=== PATIENT | male | born 1955 | race Caucasian/White ===

== ENCOUNTER 2018-04-28 12:32 | Observation (INO) | payer OTHER ==
--- OUTSIDE RECORDS SUMMARY | 2018-04-28 12:37 | XMS REPORT | Continuity of Care Document ---
:1955 External Reference #:[id number] Author Name Mireya Stevens Care Team Providers Name Role Phone Mauri Chowdhury MD Care Team Information Partnership Manager Unavailable Mauri Chowdhury MD Primary Care Physician Unavailable Payers Type Date Identification Numbers Payment Provider Subscriber Policy Number: [id number] Non [facility] Jenna Dukes PayID: [id number] [address] [address] [place] [address] Expires: 2017 Policy Number: [id number] Workers Compensation Jenna Dukes Onset: 2011 PayID: [id number] [employer] [address] [place] [address] Advance Directives Description No Information Available Problems Description No Information Family History Description No Information Available Social History Type Date Description Comments Sex Unknown Marital Status Single Occupation property maintenance Occupation Tobacco Use Start: Unknown Current Cigarette Smoker 1 Pack Daily ETOH Use Rarely consumes alcohol Recreational Drug Use Used Recreational Drugs In The Past Allergies, Adverse Reactions, Alerts Date Description Reaction Status Severity Comments 04/24/2011 Penicillin Active 02/09/2018 Bee Sting Active Medications Medication Date Status Form Strength Qnty SIG Indications Ordering Provider Cetirizine HCL Active Tablets 10mg 1 by mouth Unknown /0000 every day . Clobetasol 00/00 Active Ointment 0.05% use Unknown Propionate /0000 sparingly twice a day x 1 week Fluticasone 00 Active Suspension 50mcg/Act 2 sprays Unknown Propionate /0000 both nostrils every day Hydrochlorothiazi 00/00 Active Tablets 25mg 1 by mouth Unknown de /0000 every day Pravastatin 00/00 Active Tablets 40mg 1 by mouth Unknown Sodium /0000 every day Aspirin 00/[address] 81mg 1 by mouth Unknown /0000 every day No Active 04/24 Fanny Shepherd Mago Sy M.D. 02/09 Immunizations Description No Information Available Vital Signs Date Vital Result Comment 04/18/2018 1:57pm Weight 119.00 lb Height 65 inches 5'5" BMI (Body Mass Index) 19.8 kg/m2 BP Systolic 115 mmHg BP Diastolic 68 mmHg Heart Rate 86 /min O2 % BldC Oximetry 95 % Body Temperature 98.9 F Pain Level 0 02/09/2018 3:34pm Weight 119.00 lb Height 65 inches 5'5" BMI (Body Mass Index) 19.8 kg/m2 BP Systolic 146 mmHg BP Diastolic 78 mmHg Heart Rate 78 /min O2 % BldC Oximetry 94 % Body Temperature 98.5 F Pain Level 0 05/18/2011 4:02pm Weight 119.00 lb Height 65.5 inches 5'5.50" BMI (Body Mass Index) 19.5 kg/m2 BP Systolic 130 mmHg BP Diastolic 70 mmHg Heart Rate 88 /min O2 % BldC Oximetry 95 % Body Temperature 97.4 F 04/24/2011 4:32pm Weight 121.00 lb Height 65.5 inches 5'5.50" BMI (Body Mass Index) 19.8 kg/m2 BP Systolic 124 mmHg BP Diastolic 58 mmHg Heart Rate 70 /min O2 % BldC Oximetry 95 % Body Temperature 97.4 F Results Description No Information Available Procedures Date Code Description Status 02/09/2018 06278 Nasal Endoscopy, Diag. Completed 05/18/2011 75559 Laryngoscopy W/ Stroboscopy Completed 04/24/2011 61407 Laryngoscopy W/ Stroboscopy Completed 04/24/2011 54891 Laryngoscopy W/ Stroboscopy Completed Encounters Type Date Location Provider Dx Diagnosis Office Visit 02/09/2018 Main Office Yossi Shepherd M.D. J32.9 Chronic sinusitis, 3:30p unspecified J34.2 Deviated nasal septum J34.3 Hypertrophy of nasal turbinates Office Visit 05/18/2011 4:15p Main Office Yossi Shepherd 478.79 Larynx Disease Catalina Other 958.8 Trauma Early Complication Other 784.1 Throat Pain 784.49 Voice Disturbance Other Office Visit 04/24/2011 4:30p Main Office Yossi Shepherd M.D. 784.1 Throat Pain 784.1 Throat Pain 478.79 Larynx Disease Other 478.79 Larynx Disease Other 959.09 Injury Face And Neck 959.09 Injury Face And Neck 925.2 Crushing Injury Neck 925.2 Crushing Injury Neck 784.49 Voice Disturbance Other Plan of Treatment No Information Available
[2018-04-28] MEDS ORDERED: NS 0.9% 1000 ML* 1,000 ML IV ONE (12:45)
[2018-04-28] MEDS ORDERED: Aspirin 81 mg CHEW TAB* 81 MG TAB.CHEW PO ONE (12:46)
--- NOTE | 2018-04-28 12:59 | ED ---
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 Pt notes sx improved with EMS tx atropine, 500cc nl saline. The pt experienced dizziness, so he sat down but sx continued to worsen. He endorses LOC for unknown duration , diaphoresis, and SOB. PMHx OA chronic back pain, but pain a little worse/ different than usual. Rx 81 mg ASA. PMHx HTN rx hydrochlorothiazide. He notes the dizziness is worsens with sitting up. He denies FHx aneurysms, recent illness, fever, cough, and EtOH use. - History of Current Complaint Chief Complaint: EDSyncope Time Seen by Provider: 04/28/18 12:44 Hx Obtained From: Patient Onset/Duration: Started Hours Ago, Still Present Timing: Constant Initial Severity: Mild Current Severity: Mild Pain Intensity: 2 Pain Scale Used: 0-10 Numeric Chest Pain Location: Mid Sternal Chest Pain Radiates: Yes Chest Pain Radiates To:: Back Character: Tightness Aggravating Factor(s): Other: - sitting up Alleviating Factor(s): EMS Tx Associated Signs and Symptoms: Positive: Chest Pain, Dizziness, Shortness of Breath, Diaphoresis, Back Pain, Other: - syncope. Negative: Fever, Cough, Productive Cough, Nonproductive Cough - Allergy/Home Medications Allergies/Adverse Reactions: Allergies Allergy/AdvReac Type Severity Reaction Status Date / Time fentanyl Allergy Intermediate Difficulty Verified 04/28/18 16:04 Breathing MS Penicillins [Penicillins] Allergy Unknown Unknown Verified 12/17/13 12:45 Reaction Details Home Medications: Home Medications Aspirin EC TAB* [Ecotrin EC Low Dose 81 MG*] 81 mg PO DAILY 04/28/18 [History Confirmed 04/28/18] Budesonide/Formote 160/4.5(NF) [Symbicort 160/4.5 (NF)] 2 puff INH BID 04/28/18 [History Confirmed 04/28/18] Cetirizine* [ZyrTEC 10 MG TAB*] 10 mg PO DAILY PRN 04/28/18 [History Confirmed 04/28/18] Clobetasol 0.05% OINT* 1 applic TOPICAL QAM PRN 04/28/18 [History Confirmed 06/05] Clopidogrel TAB* [Plavix TAB*] 75 mg PO DAILY 04/28/18 [History Confirmed ] Fluticasone NASAL SPRAY 50MCG* [Flonase NASAL SPRAY 50MCG*] 2 spray BOTH NARES DAILY PRN 04/28/18 [History Confirmed 04/28/18] Hydrochlorothiazide TAB* [Hydrodiuril TAB*] 25 mg PO QAM 04/28/18 [History Confirmed 04/28/18] Pravastatin (NF) [Pravachol (NF)] 10 mg PO BEDTIME 04/28/18 [History Confirmed 04/28/18] PMH/Surg Hx/FS Hx/Imm Hx Cardiovascular History: Reports: Hx Hypertension Respiratory History: Reports: Hx Chronic Obstructive Pulmonary Disease (COPD) Sensory History: Denies: Hx Cataracts, Hx Contacts or Glasses, Hx Eye Prosthesis, Hx Glaucoma , Hx Macular Degeneration Opthamlomology History: Denies: Hx Cataracts, Hx Contacts or Glasses, Hx Eye Prosthesis, Hx Glaucoma , Hx Macular Degeneration - Surgical History Surgery Procedure, Year, and Place: hernia, tonsilectomy - Immunization History Immunizations Up to Date: Yes Infectious Disease History: No Infectious Disease History: Denies: Traveled Outside the [place] in Last 30 Days - Family History Known Family History: Positive: None - Social History Alcohol Use: Rare Substance Use Type: Reports: Marijuana Substance Use Comment - Amount & Last Used: Daily Smoking Status (MU): Heavy Every Day Tobacco Smoker Type: Cigarettes Amount Used/How Often: 1/2 ppd Length of Time of Smoking/Using Tobacco: 40 yrs Have You Smoked in the Last Year: Yes Review of Systems Positive: Skin Diaphoresis. Negative: Fever, Chills Negative: Erythema Negative: Sore Throat Positive: Chest Pain Positive: Shortness Of Breath. Negative: Cough Negative: Abdominal Pain, Vomiting, Nausea Negative: dysuria, hematuria Positive: Myalgia - back. Negative: Edema Negative: Rash Neurological: Other - dizziness Positive: Syncope - LOC, unknown duration All Other Systems Reviewed And Are Negative: Yes Physical Exam - Summary Physical Exam Summary: Constitutional: Well-developed, Well-nourished, Alert. (-) Distressed Skin: Warm, Dry HENT: Normocephalic; Atraumatic Eyes: Conjunctiva normal Neck: Musculoskeletal ROM normal neck. (-) JVD, (-) Stridor, (-) Tracheal deviation Cardio: Rhythm regular, rate normal, Heart sounds normal; Intact distal pulses; The pedal pulses are 2+ and symmetric. Radial pulses are 2+ and symmetric. (-) Murmur Pulmonary/Chest wall: Effort normal. (-) Respiratory distress, (-) Wheezes, (-) Rales Abd: Soft, (-) epigastric tenderness, (-) Distension, (-) Guarding, (-) Rebound Musculoskeletal: (-) Edema Lymph: (-) Cervical adenopathy Neuro: Alert, Oriented x3, dizzy upon sitting up Psych: Mood and affect Normal Triage Information Reviewed: Yes Vital Signs On Initial Exam: Initial Vitals Temp Pulse Resp BP Pulse Ox 97 F 65 20 122/69 96 04/28/18 12:43 04/28/18 12:43 04/28/18 12:43 04/28/18 12:43 04/28/18 12:43 Vital Signs Reviewed: Yes Diagnostics - Vital Signs Vital Signs Temp Pulse Resp BP Pulse Ox 04/28/18 12:43 97 F 65 20 122/69 96 - Laboratory Result Diagrams: 04/28/18 12:52 04/28/18 12:52 Lab Statement: Any lab studies that have been ordered have been reviewed, and results considered in the medical decision making process. - Radiology CXR Xray Interpretation: Positive (See Comments) Radiology Interpretation Completed By: Radiologist - Stigmata of obstructive lung disease. No acute pulmonary or cardiac process evident. Dr. Arteaga has reviewed this report. - CT CTA chest/thorax CT Interpretation: Positive (See Comments) CT Interpretation Completed By: Radiologist - Negative for aneurysm or dissection of the thoracic aorta. Advanced emphysema. No acute cardiopulmonary process evident. No evidence for aneurysm or dissection of the abdominal aorta. Peripheral vascular disease with patent appearing stent at the proximal RIGHT external iliac artery. Small calcified nodule at the RIGHT adrenal gland likely reflect sequela of previous adrenal hemorrhage. Negative for lymphadenopathy. 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 Dr. Arteaga has reviewed this report. - EKG 1236 Cardiac Rate: NL - 70 EKG Rhythm: Sinus Rhythm ST Segment: Normal Ectopy: None EKG Interpretation: No STEMI Chest Pain Course/Dx - Course Course Of Treatment: A 63-year-old M presents to the ED with a CC of 2/10 mid- sternal tight chest pain. (+) dizziness, syncope with LOC for unknown duration, diaphoresis, SOB, and slightly worse than baseline back pain (OA). (-) recent illness, fever, cough, EtOH use. Denies FHx aneurysms. PMHx HTN, Rx hydrochlorothiazide, ASA. A CXR reveals stigmata of obstructive lung disease. No acute pulmonary or cardiac process evident. An EKG reveals NSR at 70 BPM with no STEMI. A CTA chest/thorax reveals negative for aneurysm or dissection of the thoracic aorta. Advanced emphysema. No acute cardiopulmonary process evident. No evidence for aneurysm or dissection of the abdominal aorta. Peripheral vascular disease with patent appearing stent at the proximal RIGHT external iliac artery. Small calcified nodule at the RIGHT adrenal gland likely reflect sequela of previous adrenal hemorrhage. Negative for lymphadenopathy. 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 In the ED course, pt was given ASA, NTG, and nl saline. The pt shows a high WBC, high MCV and MCH, low lymph %, high mono %, high abs monos, high abs neuts, low total protein, and a (-) trop. - Diagnoses Provider Diagnoses: Syncope, Chest pain - Provider Notifications Discussed Care Of Patient With: Elda Alonzo Time Discussed With Above Provider: 17:02 Instructed by Provider To: Other - Accepts admission. Discharge - Sign-Out/Discharge Documenting (check all that apply): Patient Departure - admit - Discharge Plan Condition: Fair Disposition: ADMITTED TO [facility] Referrals: Mauri Chowdhury MD [Primary Care Provider] - - Attestation Statements Document Initiated by Scribe: Yes Documenting Scribe: Demond Bradshaw Provider For Whom Mirianibe is Documenting (Include Credential): Dr. Jose M Arteaga MD Scribe Attestation: Demond Almazan, scribed for Dr. Jose M Arteaga MD on 04/28/18 at 1704.
[2018-04-28 13:15] LABS: ABS Basophils 0 10^3/ul (0-0.2); ABS Eosinophils 0 10^3/ul (0-0.6); ABS Lymphocytes 1.1 10^3/ul (1.0-4.8); ABS Monocytes 1.2 10^3/ul (0-0.8); ABS Neutrophils 10.8 10^3/ul (1.5-7.7); ABS Nucleated RBC 0 10^3/ul; Eosinophil % 0.3 % (0-6); Hematocrit 45 % (42-52); Hemoglobin 14.7 g/dl (14.0-18.0); Lymphocyte % 8.4 % (25-47); Mean Corpuscular HGB Conc 33 g/dl (31-36); Mean Corpuscular Hemoglobin 32 pg (27-31); Mean Corpuscular Volume 96 fL (80-94); Mean Platelet Volume 8.1 um3 (7.4-10.4); Nucleated Red Blood Cells % 0; Platelet Count 263 10^3/ul (150-450); Red Blood Count 4.63 10^6/ul (4.00-5.40); Red Cell Distribution Width 14 % (10.5-15); White Blood Count 13.1 10^3/ul (3.5-10.8)
--- NOTE | 2018-04-28 13:24 | RAD ---
Indication: Syncope, chest pain. Fall. Comparison: March 20, 2010 Technique: Upright AP 1300 hours Report: Elevated lung volumes. Patchy rarefaction of upper lung zone interstitial markings. No focal pulmonary lesion, compelling alveolar consolidation, pleural effusion, pneumothorax. The heart, pulmonary vasculature, and mediastinal contours are unremarkable. IMPRESSION: #. Stigmata of obstructive lung disease. No acute pulmonary or cardiac process evident.
[2018-04-28] MEDS: Nitroglycerin TAB 0.4 MG* 0.4 MG TAB SL ONE ×2 (13:25→13:40)
[2018-04-28 13:27] LABS: EGFR Non-African American 89.2 (>60)
[2018-04-28] MEDS ORDERED: Iohexol 350* (CONTRAST) 500 ML MDV IV ONE ×2 (13:33→14:31)
--- NOTE | 2018-04-28 14:59 | RAD ---
INDICATION: Chest pain radiating into the back. Assess aorta. COMPARISON: April 28, 2018 chest radiograph. TECHNIQUE: Multidetector CT images were obtained from the lung apices to the ischial tuberosities with 56 mL Omnipaque 350 IV contrast. No oral contrast administered. Multiplanar reformation including maximum intensity projection and 3-D arterial volume rendering. Assessment of the abdominal pelvic visceral is limited due to arterial phase only series and absence of oral contrast. CHEST REPORT: Elevated lung volumes and advanced panlobular emphysema. Mild LEFT greater than RIGHT apical pleural-parenchymal scarring. No alveolar consolidation, suspicious focal pulmonary lesions, pleural effusion, pneumothorax. Negative for thoracic lymphadenopathy, cardiomegaly, pericardial effusion. Normal diameter thoracic aorta with mild atherosclerotic plaque. Negative for dissection of the thoracic aorta. Unremarkable central pulmonary arteries. Negative for acute fracture or suspicious thoracic osseous lesions. CHEST IMPRESSION: #. Negative for aneurysm or dissection of the thoracic aorta. #. Advanced emphysema. No acute cardiopulmonary process evident. ABDOMEN PELVIS REPORT: LIVER / GALLBLADDER / PANCREAS / SPLEEN: No abnormality of the unenhanced liver, gallbladder, pancreas, or spleen evident. ALIMENTARY TRACT: No CT abnormality of the unopacified upper GI or small bowel evident. The appendix is not definitively visualized. Negative for inflammatory change at the RIGHT lower quadrant. Mild diverticulosis at the sigmoid colon without findings of acute diverticulitis. MESENTERIC: Unremarkable. ADRENAL / GENITOURINARY: 1.6 x 1.1 cm macroscopically calcified RIGHT adrenal gland. Unremarkable LEFT adrenal gland. Symmetric enhancement of the kidneys. No conspicuous focal renal lesions or hydronephrosis. Unremarkable nondilated ureters with complete pyelographic phase opacification. No abnormality of the distended urinary bladder with approximate 50% pyelographic phase contrast opacification. Symmetric seminal vesicles. RETROPERITONEAL: Negative for lymphadenopathy. VASCULAR: Mild atherosclerotic plaque of normal diameter abdominal aorta. No evidence for dissection of the abdominal aorta. Negative for hemodynamic significant stenosis of the abdominal aorta or visceral arteries. Stent in place at the proximal RIGHT internal iliac artery with normal contrast opacification of the lumen. Normal contrast opacification of the internal iliac arteries. Physiologic distention of the IVC. BONES: Negative for lumbar sacral spine, pelvic, or proximal femur fracture evident. Subchondral geographic sclerotic lesion weightbearing portion of the RIGHT femoral head is consistent with avascular necrosis. No CT evidence for subchondral collapse. SOFT TISSUE: Unremarkable. IMPRESSION: #. No evidence for aneurysm or dissection of the abdominal aorta. Peripheral vascular disease with patent appearing stent at the proximal RIGHT external iliac artery. #. Small calcified nodule at the RIGHT adrenal gland likely reflect sequela of previous adrenal hemorrhage. #. Negative for lymphadenopathy. #. 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
[2018-04-28] MEDS ORDERED: Clobetasol 0.05% OINT* 30 GM TUBE TOPICAL PRN (17:20)
[2018-04-28] MEDS ORDERED: Cetirizine* 10 MG TAB PO PRN (17:20)
[2018-04-28] MEDS ORDERED: Nitroglycerin TAB 0.3 MG* 0.3 MG TAB SL ONE (17:20)
[2018-04-28] MEDS ORDERED: Fluticasone NASAL SPRAY 50MCG* 16 gm SPRAY BTL BOTH NARES PRN (17:20)
[2018-04-28] MEDS ORDERED: Nitroglycerin TAB 0.4 MG* 0.4 MG TAB SL PRN (17:21)
[2018-04-28] MEDS ORDERED: Acetaminophen TAB* 325 MG PO PRN (17:21)
[2018-04-28] MEDS ORDERED: Ondansetron INJ* 2 MG/ML VIAL IV PRN (17:21)
[2018-04-28] MEDS ORDERED: Albuterol 2.5 MG/3 ML NEB.SOL* (0.083%) INH PRN (17:24)
[2018-04-28] MEDS ORDERED: Nicotine Inhaler* 10 MG AMP INH PRN (17:59)
[2018-04-28] MEDS ORDERED: Mouth Piece, Nicotine* 1 EACH CARTRIDGE INH PRN ×2 (17:59)
[2018-04-28] MEDS ORDERED: Al Hydrox/Mg Hydrox/Simet LIQ* 30 ML UDC PO PRN (19:22)
[2018-04-28] MEDS: Mometasone/Formoter 200/5 MDI INH SCH (19:37)
[2018-04-28] MEDS ORDERED: CMCS:Pravastatin (NF) 20 MG TAB PO SCH (21:00)
--- NOTE | 2018-04-28 21:37 | HP ---
HISTORY AND PHYSICAL: DICTATION ENDS ABRUPTLY HERE LARISA JOHNSON [id number]/[facility] #: [id number]
[2018-04-28] MEDS: Heparin VIAL(*) 5000 UNITS/ML VIAL (FIVE THOUSAND) SUBCUT SCH (21:39)
[2018-04-28] MEDS ORDERED: Tamsulosin CAP* 0.4 MG PO SCH (22:14)
--- NOTE | 2018-04-28 22:35 | HP ---
CC: Dr. Elda Alonzo; Dr. Mauri Chowdhury* HISTORY AND PHYSICAL: DATE OF ADMISSION: 04/28/18 MY ATTENDING WHILE IN THE HOSPITAL: Elda Alonzo DO* (dictated by LARISA Johnson). PRIMARY CARE PROVIDER: Mauri Chowdhury MD CHIEF COMPLAINT: Syncope. HISTORY OF PRESENT ILLNESS: Mr. Dukes is a 63-year-old male with past medical history significant for peripheral arterial disease, hypertension, hyperlipidemia, COPD, who this morning was working in his shop, felt lightheaded , had sat down, his lightheadedness passed, but then he stood up, his lightheadedness came back and this time persisted after sitting down. The patient began to walk to his car feeling persistently lightheaded, was driving and felt that he was going to pass out, was able to lime puller his car and park and then woke up. The patient called an ambulance. The patient in the ambulance was noted to have a heart rate, which was recorded in the 50s and then dropped down to 38. The patient was given 2 doses of atropine, which brought up his heart rate. No hypotension was recorded. The patient states that after he woke up, he was covered in sweat and had mild chest pain about 3/ 10, which he describes as a pressure, nonradiating, associated with shortness of breath, not affected by movement. The patient states this has diminished. He does not know whether this was temporary or related to the administration of nitroglycerin in the emergency department. The patient has never had anything like this before. The patient recently underwent a procedure for stenting of his right iliac artery. The patient is on aspirin and Plavix for that. The patient has hypertension and high cholesterol. In the emergency department, heart rate was staying in the 70s, but then decreased back down to the 50s. The patient still had mild chest pressure, but no pain. The patient has had no other recent illnesses. The patient works outside, but has no recent tick bites known. The patient had no ST segment changes on his EKG and negative troponins. Due to concern for bradycardia versus unstable angina, we were asked to evaluate for admission. PAST MEDICAL HISTORY: COPD, hypertension, hyperlipidemia, osteoarthritis, peripheral arterial disease status post stenting, chronic back and neck pain, hematuria, unknown origin. PAST SURGICAL HISTORY: Iliac artery stenting. MEDICATIONS: 1. Aspirin 81 mg p.o. daily. 2. Pravastatin 10 mg p.o. at bedtime. 3. Hydrochlorothiazide 25 mg p.o. q.a.m. 4. Fluticasone 2 sprays both nares daily as needed. 5. Clopidogrel 75 mg p.o. daily. 6. Clobetasol 1 application topical daily as needed. 7. Zyrtec 10 mg p.o. daily as needed. 8. Symbicort 160/4.5 two puffs inhalation b.i.d. ALLERGIES: FENTANYL, PENICILLIN. FAMILY HISTORY: The patient's father is alive, but has heart disease of unknown type. The patient's mother of an NC. The patient has a sister with hypothyroidism, several other siblings who are healthy. SOCIAL HISTORY: The patient smoked a pack a day for the entirety of his adult life since he was 17. The patient drinks alcohol very seldomly and uses occasional marijuana. The patient works as a equipment maintenance supervisor. The patient is and has no children. The patient's surrogate decision maker will be his girlfriend, Rosita Fair. REVIEW OF SYSTEMS: A 14-point review of systems was reviewed and is negative except as above in the HPI. PHYSICAL EXAMINATION GENERAL: The patient is a 63-year-old male, who appears stated age, sitting comfortably in the bed, in no acute distress. VITAL SIGNS: At the time of evaluation, temperature 97, pulse rate 53, respiratory rate 20, oxygen saturation 93% on room air, blood pressure 120/61. HEENT: Head: Normocephalic, atraumatic. Sclerae anicteric. No conjunctival injection. Nasal mucosa moist. Oral mucosa moist. No pharyngeal erythema, discharge, or exudate. NECK: Supple, nontender. No lymphadenopathy. No carotid bruit auscultated. No JVD. RESPIRATORY: Clear to auscultation bilaterally. No wheezes, rales, or rhonchi. Good air exchange bilaterally. CARDIAC: Regular rate and rhythm. No clicks, murmurs, gallops, or rubs. Pulses 2+ in the bilateral dorsalis pedis, posterior tibialis, and radial areas. No bilateral lower extremity edema noted. ABDOMEN: Soft, nontender, nondistended. Bowel sounds present. Normoactive in all 4 quadrants. No hepatosplenomegaly. No abdominal bruits auscultated. No hepatojugular reflux. GENITOURINARY: No suprapubic or CVA tenderness. NEURO: Cranial nerves II through XII intact. No focal deficits. Alert and oriented x3. PSYCHIATRIC: Pleasant and cooperative. SKIN: Clean, dry, intact. No rash. LABORATORY DATA: White blood cell count 13.1, hemoglobin 14.7, MCV 96, MCH 32. Sodium 139, potassium 3.9, chloride 105, carbon dioxide 28, anion gap 6, BUN 16, creatinine 0.87, glucose 106. Lactic acid 1.1. Calcium 8.9. Bilirubin 0.4, AST 18, ALT 14, alkaline phosphatase 51. Troponin I 0.01 x2. Protein 6.2. Albumin 6.8, globulin 2.4. DIAGNOSTIC STUDIES: Chest x-ray read as stigmata of obstructive lung disease, no acute pulmonary or cardiac process evident. 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 Electrocardiogram shows normal sinus rhythm, no ST segment abnormalities, possible left atrial enlargement, normal axis, normal R wave progression, rate of 70, QTc of 429. IMPRESSION: Mr. Dukes is a 63-year-old male with past medical history significant for the above who presented to the emergency department with syncope with reported episodes of bradycardia not reproduced in the emergency department and slight chest pain, which has diminished. The patient will be admitted to the hospital for telemetry monitoring, risk stratification, and stress test in the morning. ASSESSMENT AND PLAN: 1. Syncope. The patient's syncope was associated with chest pain and which sounds cardiac in origin due to presence of diaphoresis, nausea, and shortness of breath. The patient will be admitted to the hospital and monitored on telemetry. The patient will have troponins drawn x3, which were negative at this point. The patient has no EKG changes. The patient will have risk stratification with a lipid profile and hemoglobin A1c. The patient will be continued on his statin, aspirin, and clopidogrel. The patient's blood pressure will be controlled with hydrochlorothiazide. The patient is currently normotensive. The patient's heart rate will be monitored. The patient's case was discussed with mate fourth, Dr. Obie Perez, who states that the patient is stable for preferably exercise stress test in the morning to see if this provokes ischemia or possible bradycardia mediated by ischemia. If he develops continued symptomatic bradycardia, can be treated with atropine and formal cardiac consultation should be obtained at this time. 2. Hypertension. Continue hydrochlorothiazide as above. 3. Peripheral arterial disease. The patient's stent looks patent. Continue aspirin and clopidogrel as above. 4. Hyperlipidemia. Continue pravastatin. Repeat lipid profile pending. 5. Back pain. The patient is not on anything for this at home. We will manage with Tylenol while in the hospital. 6. Chronic obstructive pulmonary disease. Continue the patient's Symbicort and albuterol nebulizer as needed while in the hospital. The patient has no signs of exacerbation at this time. 7. FEN. The patient will have fluids after midnight and a heart healthy diet without caffeine, being n.p.o. after midnight. 8. DVT prophylaxis. The patient will have heparin subcu. 9. Code status. The patient will be a full code. The patient's surrogate decision maker is his girlfriend, Rosita Fair, as above. The patient is interested in invasive procedures such as a pacemaker if indicated. TIME SPENT: Approximately 60 minutes were spent on this admission, 30 of which was spent [id number] with the patient obtaining history and physical and discussing treatment plan. This plan has been discussed with my attending, Dr. Elda Alonzo, and she is in agreement. LARISA JOHNSON [id number]/CPS #: [id number] MTDVeronika
[2018-04-28] MEDS ORDERED: Ropinirole TAB* 0.5 MG TAB PO SCH (23:30)
[2018-04-28] MEDS ORDERED: CMC:Pravastatin (NF) 20 MG TAB PO SCH (23:30)
[2018-04-29] MEDS ORDERED: NS 0.9% 1000 ML* 1,000 ML IV SCH
[2018-04-29] MEDS: Heparin VIAL(*) 5000 UNITS/ML VIAL (FIVE THOUSAND) SUBCUT SCH ×2 (04:55→14:32)
[2018-04-29 07:16] LABS: ABS Basophils 0 10^3/ul (0-0.2); ABS Eosinophils 0.1 10^3/ul (0-0.6); ABS Monocytes 1.1 10^3/ul (0-0.8); ABS Neutrophils 5.7 10^3/ul (1.5-7.7); ABS Nucleated RBC 0 10^3/ul; Hematocrit 42 % (42-52); Hemoglobin 14.4 g/dl (14.0-18.0); Lymphocyte % 22.5 % (25-47); Mean Corpuscular HGB Conc 34 g/dl (31-36); Mean Corpuscular Hemoglobin 32 pg (27-31); Mean Corpuscular Volume 95 fL (80-94); Mean Platelet Volume 8.6 um3 (7.4-10.4); Nucleated Red Blood Cells % 0.1; Platelet Count 276 10^3/ul (150-450); Red Blood Count 4.44 10^6/ul (4.00-5.40); Red Cell Distribution Width 14 % (10.5-15); White Blood Count 8.9 10^3/ul (3.5-10.8)
[2018-04-29 07:26] LABS: EGFR Non-African American 105.9 (>60)
[2018-04-29] MEDS: Mometasone/Formoter 200/5 MDI INH SCH (07:39)
[2018-04-29] MEDS ORDERED: Clopidogrel TAB* 75 MG PO SCH (09:00)
[2018-04-29] MEDS ORDERED: Hydrochlorothiazide TAB* 25 MG PO SCH (09:00)
[2018-04-29] MEDS ORDERED: Aspirin EC TAB* 81 MG TAB.EC PO SCH (09:00)
--- NOTE | 2018-04-29 10:42 | ECHO ---
Patient: PAYAL HERNANDEZ [facility] Rec#: [id number] : 1955 Date: 04/29/2018 Age: 63y Height: 165 cm / 65.0 in Weight: 54 kg / 119.0 lbs Sex: M BSA: 1.59 Room#: [facility] Admit Date#: 04/28/2018 Type: Inpatient Referring: Jim Maldonado Reading: Obie Perez MD Dry Ice Machine Operator: Merle Baires RDCS,RDMS CC: Mauri Chowdhury MD Transthoracic Echocardiogram Indication: CP BP: 129/43 HR: 52 Rhythm: Bradycardia Findings History: COPD, HTN, HLD, PAD Technical Comments: The study quality is fair. The study is technically limited due to the patient's history of COPD. Left Ventricle: The left ventricular chamber size is normal. Global left ventricular wall motion and contractility are within normal limits. There is normal left ventricular systolic function. The estimated ejection fraction is 55-60%. Normal left ventricular diastolic filling is observed. Left Atrium: The left atrial chamber size is normal. Right Ventricle: The right ventricular chamber size and systolic function are within normal limits. Right Atrium: The right atrial cavity size is normal. Aortic Valve: The aortic valve is trileaflet. Systolic excursion of the aortic valve is normal. There is no evidence of aortic regurgitation. There is no evidence of aortic stenosis. Mitral Valve: The mitral valve leaflets are mildly thickened. There is a trace of mitral regurgitation. Tricuspid Valve: The tricuspid valve leaflets are normal. There is trace tricuspid regurgitation. Unable to estimate the right ventricular systolic pressure. Pulmonic Valve: The pulmonic valve appears normal. There is no evidence of pulmonic regurgitation. There is no pulmonic stenosis. Pericardium: There is no significant pericardial effusion. Aorta: The aortic root appears normal. The aortic arch is not well visualized. Pulmonary Artery: The main pulmonary artery appears normal. Venous: The inferior vena cava appears normal in size. There is a greater than 50% respiratory change in the inferior vena cava dimension. Conclusions There is normal left ventricular systolic function. The estimated ejection fraction is 55-60%. Global left ventricular wall motion and contractility are within normal limits. Normal cardiac chamber sizes. Functionally benign heart valves. There is no prior echocardiogram available to compare with at this time. Measurements Name Value Normal Range RVIDd (AP) 2D 2.2 cm (0.9 - 2.6) RVDdMajor (2D) 2.3 cm (2.2 - 4.4) RAd ISD 4CH 3.5 cm (3.4 - 4.9) RA (A4C)W 2.3 cm (2.9 - 4.6) IVSd (2D) 0.9 cm (0.6 - 1) LVPWd (2D) 0.9 cm (0.6 - 1) LVIDd (2D) 4.6 cm (3.6 - 5.4) LVIDs (2D) 3.6 cm - LV FS (2D) 24 % (25 - 45) Aortic Annulus 1.8 cm (1.4 - 2.6) Ao root diameter (2D) 3.1 cm (2.1 - 3.5) Ascending Ao 2.6 cm (2.1 - 3.4) LA dimension (AP) 2D 2.9 cm (2.3 - 3.8) LAd ISD 4CH 4 cm (2.9 - 5.3) LA ISD 4CH W 3.9 cm (2.5 - 4.5) Name Value Normal Range LA ESV BP (A/L) index 21 ml/m2 - Name Value Normal Range MV E-wave Vmax 0.9 m/sec - MV deceleration time 232 msec - MV A-wave Vmax 0.5 m/sec - MV E:A ratio 1.9 ratio - P. vein S-wave Vmax 0.5 m/sec - P. vein D-wave Vmax 0.5 m/sec - P. vein S:D Vmax ratio 1 ratio - P. vein A-wave duration 106 msec - LV septal e' Vmax 0.1 m/sec - LV lateral e' Vmax 0.12 m/sec - LV E:e' septal ratio 9 ratio - LV E:e' lateral ratio 7 ratio - Name Value Normal Range AV Vmax 1.3 m/sec - AV VTI 26 cm - AV peak gradient 7 mmHg - AV mean gradient 3 mmHg - LVOT Vmax 0.8 m/sec - LVOT VTI 15 cm - LVOT peak gradient 2.6 mmHg - LVOT mean gradient 1 mmHg - Name Value Normal Range RAP 8 mmHg - IVC diameter 2 cm - Name Value Normal Range PV Vmax 0.9 m/sec - PV peak gradient 3.2 mmHg -
[2018-04-29] MEDS ORDERED: AMINOPHYLLINE 25 MG/ML IV ONE (13:06)
[2018-04-29] MEDS ORDERED: Regadenoson* 0.4 MG/5 ML SYRINGE ONE (13:43)
--- NOTE | 2018-04-29 14:03 | RAD ---
Edited for charges. Indication: Chest pain. Myocardial perfusion scan was performed utilizing 1 day protocol. Rest myocardial perfusion was performed after intravenous injection of 10.8 mCi of technetium 99m Myoview. Pharmacological stress was applied and 25.9 mCi of technetium 99 and Myoview was injected. Homogeneous distribution of the radiotracer throughout the left ventricle. There is no definite fixed or reversible perfusion defect identified. There may be some mild apical thinning noted. The ejection fraction at stress is 71%. Evaluation of wall motion demonstrates no focal wall motion abnormality. IMPRESSION: No definite fixed or reversible perfusion defect is identified. ASSESSMENT: Low risk Based on imaging criteria from ACC/AHA 2002 Guideline Update for the Management of Patients With Chronic Stable Angina Table 23. Noninvasive Risk Stratification. MTDD
[2018-04-29 16:15] VITALS: BP 151/48
--- NOTE | 2018-04-30 06:53 | DS ---
CC: Dr. Chowdhury* DISCHARGE SUMMARY: DATE OF ADMISSION: 04/28/18 DATE OF DISCHARGE: 04/29/18 PRIMARY CARE PROVIDER: Dr. Chowdhury at the [place]. PRIMARY DIAGNOSES: 1. Syncope. 2. Avascular necrosis of the right hip. SECONDARY DIAGNOSES: Include: 1. Osteoarthritis. 2. History of chronic obstructive pulmonary disease. 3. Hypertension. 4. Hyperlipidemia. 5. Peripheral vascular disease. 6. Chronic back and neck pain. 7. Hematuria, currently being worked up at the [place]. MEDICATIONS ON DISCHARGE: 1. Tamsulosin 0.4 mg at bedtime. 2. Ropinirole 0.25 mg at bedtime. 3. Pravastatin 40 mg at bedtime. 4. Aspirin 81 mg daily. 5. Fluticasone 2 sprays both nares as needed. 6. Clobetasol ointment topically in the morning as needed. 7. Cetirizine 10 mg daily as needed. 8. Symbicort 160/4.5 two puffs twice daily. 9. Hydrochlorothiazide 12.5 mg daily. Please note decreased from 25 mg daily. IMAGING PERFORMED DURING HOSPITAL STAY: CT chest, abdomen, and pelvis. Impression: No evidence of aneurysm or dissection of the abdominal aorta. Peripheral vascular disease with patent-appearing stent at the proximal right external iliac artery. Small calcific nodule of the right adrenal gland, likely reflux sequelae of previous adrenal hemorrhage. Negative for lymphadenopathy. Probable avascular necrosis. The necrosis is at the right femoral head without evidence for subchondral collapse. Advanced emphysema. No acute cardiopulmonary process is evident. Unremarkable central pulmonary arteries. Chemical stress with nuclear imaging. Impression: Low risk. No definite fixed or reversible perfusion deficit is identified. PERTINENT LABORATORY DATA: Troponin I of 0.00 on 3 consecutive checks, hemoglobin A1c is 5.8. HISTORY OF PRESENT ILLNESS AND HOSPITAL COURSE: This is a 63-year-old gentleman with past medical history as outlined in the history of present illness, on the day of admission presented to the hospital after feeling lightheaded while working in his shop, proceeded to get in the car, had sudden loss of consciousness. After he woke, presented to the hospital, had aforementioned above imaging without elucidation for etiology. He is monitored on telemetry until the time of discharge, approximately 24 hours was maintained in normal sinus rhythm. He was thought to have been bradycardic, not captured during the course of the hospital stay. Mikel of 52 during the hospital stay, at which time he was asymptomatic. He underwent a chemical stress with nuclear imaging, during which he did have episode of lightheadedness, resolved after the procedure without any correlate in nuclear imaging for ischemia. Extensive conversation with the patient and his partner indicated he has been under a tremendous amount of stress for multiple reasons including workup currently for hematuria as well as loss of his dog as well as loss of his mother as well as his father moving out of town. He works over 50 hours a week. There is some concern that there was some stress-mediated response with his lightheadedness and possible loss of consciousness. We discussed this as a diagnosis of exclusion; however, no indication at this time for underlying cardiopulmonary event. We discussed that we cannot rule an arrhythmia leading to a syncope, especially as he was sitting down when this occurred. The patient was discussed further with Dr. Chowdhury. His preference for referral to a cardiology consultation for a prolonged telemetry monitoring. Additionally, the patient was recently started on tamsulosin for BPH as well as ropinirole for restless legs syndrome. Medication effect is certainly possible. Tamsulosin has been noted to be associated with syncope as well as vertigo. His hydrochlorothiazide was decreased from 25 to 12.5 mg daily. Systolic blood pressure nadired at 110 with a diastolic of 57 today without receiving his hydrochlorothiazide; however, had climbed to 151/48 prior to his discharge. He will need further blood pressure monitoring after his discharge and followup. On the day of discharge, he was able to ambulate to the bathroom with this author without distress. He had a benign neurological exam as well as remainder of his exam. He and his partner felt comfortable returning home. At followup, please; 1. Evaluate blood pressure with decreased dose of hydrochlorothiazide as indicated above. 2. Consider referral to Cardiology for Holter monitoring. 3. Lyme serology is ordered in the emergency room, results have not yet resulted. Please follow. 4. No other specific labs or vitals that need followup. 5. CTA chest, abdomen, and pelvis incidentally noted avascular necrosis of the right hip. The patient has no pain in his right hip. Discussed these findings with Dr. Gutierrez from Orthopedic Surgery. The patient can be weightbearing as tolerated without any pain, without restrictions. I placed a referral for the patient to follow up with Dr. Gutierrez to follow up with these results. Reasons to return to the hospital including but not limited to recurrent or worsening symptoms, chest pain, shortness of breath, nausea, vomiting, lightheadedness, loss of consciousness or near loss of consciousness, fever, chills or night sweats, bleeding from any source, inability to obtain or tolerate medications were discussed with the patient and his partner. They acknowledged understanding. TIME SPENT: Greater than 60 minutes were spent on the discharge of this patient. [id number]/[facility] #: [id number] HAILEY
== END 2018-04-29 17:06 | disposition home or self-care (01) ==
LOC: ED 12:32 → MEDTELE 18:01
PROVIDERS: ADMIT Internal Medicine; ATTEND Internal Medicine
DX: R55 Syncope and collapse (principal); M87.9 Osteonecrosis, unspecified; M19.90 Unspecified osteoarthritis, unspecified site; I10 Essential (primary) hypertension; E78.5 Hyperlipidemia, unspecified; I73.9 Peripheral vascular disease, unspecified; M54.2 Cervicalgia; M54.9 Dorsalgia, unspecified; G89.29 Other chronic pain; R31.9 Hematuria, unspecified; Z79.82 Long term (current) use of aspirin; Z79.899 Other long term (current) drug therapy; Z88.0 Allergy status to penicillin; Z88.8 Allergy status to other drugs, medicaments and biological substances; F17.210 Nicotine dependence, cigarettes, uncomplicated; I44.5 Left posterior fascicular block
CPT/HCPCS: 36415; 71045; 71275; 74174; 78452; 80048; 80053; 80061; 83036; 83605; 83735; 84484; 85025; 86618; 87641; 93005; 93017; 93306; 94640; 96360; 96361; 99283; A9270-GY; A9502; G0378; J1644; J2785; Q9967

== ENCOUNTER 2022-07-21 09:38 | Observation (INO) ==
[2022-07-21] MEDS ORDERED: Lactated Ringers SEPSIS* BAG 1,850 ML IV ONE (09:47)
[2022-07-21] MEDS ORDERED: Ondansetron 4 mg VIAL 2 MG/ML 2 ml VIAL IV ONE (09:59)
[2022-07-21 10:32] LABS: Hematocrit 57 % (42-52); Hemoglobin 18.8 g/dL (14.0-18.0); Mean Corpuscular HGB Conc 33 g/dL (31-36); Mean Corpuscular Hemoglobin 32 pg (27-31); Mean Corpuscular Volume 96 fL (80-94); Mean Platelet Volume 8.6 fL (7.4-10.4); Platelet Count 319 10^3/uL (150-450); Red Cell Distribution Width 14 % (10-15); White Blood Count 13.2 10^3/uL (3.5-10.8)
[2022-07-21 11:06] LABS: Albumin 4.3 g/dL (3.2-5.2); Calcium 10.2 mg/dL (8.6-10.3); Potassium 4.1 mmol/L (3.5-5.0); Total Bilirubin 0.6 mg/dL (0.2-1.0)
[2022-07-21 11:12] LABS: Albumin/Globulin Ratio 1.4 (1-3); C Reactive Protein 2.2 mg/L (<8.01); Globulin 3.1 g/dL (2-4); Total Protein 7.4 g/dL (6.4-8.9); eGFR CKD-EPI 95.8 (>60)
[2022-07-21 11:35] LABS: ABS Lymphocytes 2.2 10^3/ul (1.0-4.8); ABS Monocytes 1.7 10^3/ul (0-0.8); ABS Neutrophils 9.3 10^3/ul (1.5-7.7); Eosinophil % 0.1 %; Lymphocyte % 16.4 %
[2022-07-21 11:42] LABS: Activated Partial Thrombo Time 27.4 seconds (26.0-38.0); INR 1.05 (0.88-1.18)
[2022-07-21 11:49] LABS: High Sensitivity Troponin 1 Hr 88 pg/mL (<20)
[2022-07-21] MEDS ORDERED: Iohexol 350 (CONTRAST) 500 ML MDV IV ONE (11:58)
[2022-07-21 13:02] LABS: Urine Appearance Clear; Urine Bilirubin Negative (Negative); Urine Blood 1+ (Negative); Urine Color Yellow; Urine Glucose Negative (Negative); Urine Ketones Negative (Negative); Urine Nitrite Negative (Negative); Urine Protein Negative (Negative); Urine Specific Gravity 1.028 (1.002-1.030); Urine Urobilinogen Negative (Negative)
[2022-07-21 13:14] LABS: Urine Amorphous Crystals Present (Absent); Urine Bacteria Absent (Absent); Urine Red Blood Cell 1+(3-5/hpf) (Absent); Urine Squamous Epithelial Cell Present (Absent); Urine White Blood Cell Trace(0-5/hpf) (Absent)
[2022-07-21] MEDS ORDERED: IODINE TOPICAL PRN (14:09)
[2022-07-21] MEDS ORDERED: POVIDONE TOPICAL PRN (14:09)
[2022-07-21] MEDS ORDERED: Albuterol HFA INHALER 8 gm MDI INH PRN (14:09)
[2022-07-21] MEDS ORDERED: SPIRIVA Respimat (tiotropium) 2.5 mcg/inh Inhaler INH PRN (14:55)
[2022-07-21] MEDS: Enoxaparin 40 MG/0.4 ML SYR SUBCUT SCH (16:16)
[2022-07-21] MEDS: Lactated Ringers 1000 ml BAG 1,000 ML IV SCH (16:17)
[2022-07-21] MEDS: Mometasone/Formoter 200/5 MDI INH SCH (19:08)
[2022-07-21] MEDS: Ondansetron 4 mg VIAL 2 MG/ML 2 ml VIAL IV PRN (23:16)
[2022-07-21] MEDS ORDERED: hydrALAZINE 20 mg/ml 1 ML Vial IV IV SLOW PU ONE (23:49)
[2022-07-22] MEDS: Lactated Ringers 1000 ml BAG 1,000 ML IV SCH (03:23)
[2022-07-22] MEDS ORDERED: hydrALAZINE 20 mg/ml 1 ML Vial IV IV SLOW PU PRN (03:56)
[2022-07-22 05:58] LABS: ABS Lymphocytes 2.4 10^3/ul (1.0-4.8); ABS Monocytes 1.1 10^3/ul (0-0.8); ABS Neutrophils 6.5 10^3/ul (1.5-7.7); Hematocrit 47 % (42-52); Hemoglobin 15.8 g/dL (14.0-18.0); Lymphocyte % 23.6 %; Mean Corpuscular HGB Conc 34 g/dL (31-36); Mean Corpuscular Hemoglobin 32 pg (27-31); Mean Corpuscular Volume 95 fL (80-94); Mean Platelet Volume 8.4 fL (7.4-10.4); Nucleated Red Blood Cells % 0.1; Platelet Count 282 10^3/uL (150-450); Red Blood Count 4.89 10^6 /uL (4.18-5.48); Red Cell Distribution Width 14 % (10-15)
[2022-07-22 06:33] LABS: Calcium 8.6 mg/dL (8.6-10.3); Potassium 3.9 mmol/L (3.5-5.0)
[2022-07-22] MEDS: Ondansetron 4 mg VIAL 2 MG/ML 2 ml VIAL IV PRN (06:34)
[2022-07-22 06:38] LABS: eGFR CKD-EPI 102.7 (>60)
[2022-07-22] MEDS: Mometasone/Formoter 200/5 MDI INH SCH (07:26)
[2022-07-22] MEDS ORDERED: CADEXOMER IODINE 0.9% TOPICAL SCH (09:00)
[2022-07-22 11:30] VITALS: BP 141/70
[2022-07-22] MEDS: Enoxaparin 40 MG/0.4 ML SYR SUBCUT SCH (15:42)
== END 2022-07-22 15:25 | disposition home or self-care (01) ==
LOC: EDHOLD 09:38 → ED 09:38 → MED 15:18
PROVIDERS: ADMIT Internal Medicine; ATTEND Internal Medicine